=== PATIENT | male | born 1990 | race Caucasian/White ===

== ENCOUNTER 2018-09-13 13:25 | Emergency (ER) | payer OTHER ==
--- NOTE | 2018-09-13 13:51 | EDM.PDOC ---
ED HPI GENERAL MEDICAL PROBLEM - General Chief Complaint: Back Pain or Injury Stated Complaint: BACK PAIN Time Seen by Provider: 09/13/18 13:45 Source of Information: Reports: Patient History Limitations: Reports: No Limitations - History of Present Illness INITIAL COMMENTS - FREE TEXT/NARRATIVE: HISTORY AND PHYSICAL: History of present illness: Patient is a 28-year-old male here with complaint of low back pain. He states he fell on the ice about 6 weeks ago, back has been bothering him since. He reports this morning he woke up with worsening pain. He has had pain down the back of the thigh on the right and occasionally the left. Denies any saddle anesthesia, loss of bowel or bladder control, lower extremity weakness or foot drop, fevers or chills. He went to the chiropractor this morning but chiropractor told him he wouldn't touch him until he had it looked at and advised him to come to the ED. He has not taken anything for his pain today, will take ibuprofen and states this barely takes the edge off. Review of systems: As per history of present illness and below otherwise all systems reviewed and negative. Past medical history: As per history of present illness and as reviewed below otherwise noncontributory. Surgical history: As per history of present illness and as reviewed below otherwise noncontributory. Social history: No reported history of drug or alcohol abuse. Family history: As per history of present illness and as reviewed below otherwise noncontributory. Physical exam: General: Patient sitting comfortably in no acute distress and nontoxic appearing HEENT: Atraumatic, normocephalic, pupils reactive, negative for conjunctival pallor or scleral icterus, mucous membranes moist, throat clear, neck supple, nontender, trachea midline. No meningeal signs. Lungs: Clear to auscultation, breath sounds equal bilaterally, chest nontender. Heart: S1S2, regular, negative for clicks, rubs, or overt murmur. Abdomen: Soft, nondistended, nontender. Negative for masses or hepatosplenomegaly. Negative for costovertebral tenderness. Pelvis: Stable nontender. Genitourinary: Deferred. Rectal: Deferred. Spine: Pain to palpation of the lower lumber spine without any strep offs. Left lumbar paraspinal tenderness to palpation. Extremities: Atraumatic, negative for cords or calf pain. Neurovascular unremarkable. Neuro: Awake, alert, oriented. Cranial nerves II through XII unremarkable. Cerebellum unremarkable. Motor and sensory unremarkable throughout. Exam nonfocal. Notes: Diagnostics: x-ray lumbar spine Therapeutics: 60mg Toradol IM Prescriptions: Sublette 5/325 (#12) Impression: Lumbar back pain Plan: 1. Heat and Motrin as instructed. You may take tramadol as needed for severe pain, do not take while driving as it may make you drowsy 2. Follow up with primary care provider 3. Return to ED as needed as discussed Definitive disposition and diagnosis as appropriate pending reevaluation and review of above. lower back Pain Score (Numeric/FACES): 7 - Related Data Allergies Allergy/AdvReac Type Severity Reaction Status Date / Time codeine Allergy Hyperactivi Verified 09/13/18 13:41 ty Home Meds: Home Meds . [No Known Home Meds] 09/13/18 [History] Social & Family History - Family History Family Medical History: Noncontributory - Tobacco Use Smoking Status *Q: Never Smoker Second Hand Smoke Exposure: No - Caffeine Use Caffeine Use: Reports: Coffee, Energy Drinks, Soda, Tea - Recreational Drug Use Recreational Drug Use: No ED ROS GENERAL - Review of Systems Review Of Systems: ROS reveals no pertinent complaints other than HPI. ED EXAM,LOWER BACK PAIN/INJURY - Physical Exam Exam: See Below (see dictation) Course - Vital Signs Last Recorded V/S: Last Vital Signs Temp 97.5 F 09/13/18 13:42 Pulse 73 09/13/18 13:42 Resp 18 09/13/18 13:42 BP 141/75 H 09/13/18 13:42 Pulse Ox 97 09/13/18 13:42 - Orders/Labs/Meds Meds: Medications Discontinued Medications Generic Name Dose Route Start Last Admin Trade Name Freq PRN Reason Stop Dose Admin Ketorolac Tromethamine 60 mg 09/13/18 13:52 09/13/18 14:03 Toradol IM 09/13/18 13:53 60 mg ONETIME ONE Administration Departure - Departure Time of Disposition: 14:47 Disposition: Home, Self-Care 01 Condition: Good Clinical Impression: Lumbar back pain - Discharge Information Referrals: PCP,None [Primary Care Provider] - Forms: ED Department Discharge Additional Instructions: The following information is given to patients seen in the emergency department who are being discharged to home. This information is to outline your options for follow-up care. We provide all patients seen in our emergency department with a follow-up referral. The need for follow-up, as well as the timing and circumstances, are variable depending upon the specifics of your emergency department visit. If you don't have a primary care physician on staff, we will provide you with a referral. We always advise you to contact your personal physician following an emergency department visit to inform them of the circumstance of the visit and for follow-up with them and/or the need for any referrals to a consulting specialist. The emergency department will also refer you to a specialist when appropriate. This referral assures that you have the opportunity for follow-up care with a specialist. All of these measure are taken in an effort to provide you with optimal care, which includes your follow-up. Under all circumstances we always encourage you to contact your private physician who remains a resource for coordinating your care. When calling for follow-up care, please make the office aware that this follow-up is from your recent emergency room visit. If for any reason you are refused follow-up, please contact the [facility] Emergency Department at and asked to speak to the emergency department charge nurse. [facility] [address] [place] [id number] [facility] [address] [place] [id number] 1. Heat and Motrin as instructed. You may take tramadol as needed for severe pain, do not take while driving as it may make you drowsy 2. Follow up with primary care provider 3. Return to ED as needed as discussed
[2018-09-13] MEDS ORDERED: Ketorolac 60 MG/2 ML SDV IM ONE (13:52)
--- NOTE | 2018-09-13 14:25 | CR ---
EXAMINATION: Lumbar spine HISTORY: Pain COMPARISON: None TECHNIQUE: AP and lateral views FINDINGS: Mild dextrocurvature of the thoracolumbar spine, otherwise the lumbar spinal alignment is normal. The vertebral body heights appear maintained. SI joints are symmetric. Bone mineralization is otherwise normal. No fracture or acute osseous abnormality. IMPRESSION: No acute osseous abnormality identified.
== END 2018-09-13 15:00 | disposition home or self-care (01) ==
LOC: MW.ED 13:25
DX: M54.5 Low back pain (principal); Z88.5 Allergy status to narcotic agent
CPT/HCPCS: 72100; 96372; 99283; J1885

== ENCOUNTER 2020-10-04 12:11 | Emergency (ER) | payer OTHER ==
--- NOTE | 2020-10-04 12:14 | EDM.PDOC ---
ED [facility] GENERAL MEDICAL PROBLEM - General Chief Complaint: Headache Stated Complaint: MIGARINE HEADACHE Time Seen by Provider: 10/04/20 12:13 Source of Information: Reports: Patient History Limitations: Reports: No Limitations - History of Present Illness INITIAL COMMENTS - FREE TEXT/NARRATIVE: 30-year-old male with no past medical history presents with headache. Headache started on Thursday, described as gradual onset progressive worsening frontal headache, radiates to the occiput, throbbing sensation, moderate in severity. Today his headache worsened. He denies fever, neck stiffness or neck pain, focal numbness or weakness, chest pain, abdominal pain, shortness of breath. He admits to photophobia, phonophobia, 2 episodes of nonbloody vomitus and chills. ROS: A 10-point review of systems, other than pertinent positives and negatives as stated per HPI, is otherwise negative Past medical history: No additional pertinent history Past Surgical history: No additional pertinent history Social history: No additional pertinent history Family history: No additional pertinent history PHYSICAL EXAM General: AOx4, GCS = 15, moderate distress HEENT: dry mucous membrane Neck: supple, no meningismus, no Kernig or Brudzinski Cardiac: S1S2 RRR Respiratory: CTAB, no crackles or rales, no wheezing Abdomen: Soft, nontender, no rebound or guarding, nondistended, no pulsatile mass. Back: nontender Musculoskeletal: NVI distally, no deformity Neuro: No focal deficits, CN 2 - 12 WNL. - Related Data Allergies Allergy/AdvReac Type Severity Reaction Status Date / Time codeine Allergy Hyperactivi Verified 10/04/20 12:57 ty Home Meds: Home Meds . [No Known Home Meds] 09/13/18 [History] Past Medical History HEENT History: Reports: None Cardiovascular History: Reports: None Respiratory History: Reports: None Gastrointestinal History: Reports: None Genitourinary History: Reports: None Musculoskeletal History: Reports: Neck Pain, Chronic Neurological History: Reports: None Psychiatric History: Reports: None Endocrine/Metabolic History: Reports: None Hematologic History: Reports: None Immunologic History: Reports: None Oncologic (Cancer) History: Reports: None Dermatologic History: Reports: None - Past Surgical History Head Surgeries/Procedures: Reports: None HEENT Surgical History: Reports: None Cardiovascular Surgical History: Reports: None Respiratory Surgical History: Reports: None GI Surgical History: Reports: None Male Surgical History: Reports: None Endocrine Surgical History: Reports: None Neurological Surgical History: Reports: None Musculoskeletal Surgical History: Reports: None Oncologic Surgical History: Reports: None Dermatological Surgical History: Reports: None Social & Family History - Family History Family Medical History: No Pertinent Family History - Caffeine Use Caffeine Use: Reports: Coffee, Energy Drinks, Soda, Tea ED ROS GENERAL - Review of Systems Review Of Systems: See Below (see dictation) - Physical Exam Exam: See Below (see dictation) Course - Vital Signs Last Recorded V/S: Last Vital Signs Temp 98 F 10/04/20 12:59 Pulse 58 L 10/04/20 12:59 Resp 16 10/04/20 12:59 BP 132/70 10/04/20 12:59 Pulse Ox 98 10/04/20 12:59 - Orders/Labs/Meds Meds: Medications Discontinued Medications Generic Name Dose Route Start Last Admin Trade Name Nia PRDiego Reason Stop Dose Admin Diphenhydramine HCl 50 mg 10/04/20 12:32 10/04/20 13:12 Benadryl IVPUSH 10/04/20 12:33 50 mg ONETIME ONE Administration Sodium Chloride 1,000 mls @ 999 mls/hr 10/04/20 12:32 10/04/20 13:13 Normal Saline IV 10/04/20 13:32 999 mls/hr .Bolus ONE Administration Ketorolac Tromethamine 30 mg 10/04/20 12:32 10/04/20 13:12 Toradol IVPUSH 10/04/20 12:33 30 mg ONETIME ONE Administration Metoclopramide HCl 10 mg 10/04/20 12:32 10/04/20 13:13 Reglan IVPUSH 10/04/20 12:33 10 mg ONETIME ONE Administration - Re-Assessments/Exams Free Text/Narrative Re-Assessment/Exam: 10/04/20 1433 After IV fluids, Toradol, Reglan, Benadryl in the ER, the patient improved and is currently stable for discharge. I performed a repeat exam and did not appreciate new abnormal findings. Patient exhibits normal vital signs and has a normal gait on road test. I advised the patient to return to the ER for reevaluation if symptoms worsened, including fever, worsening pain, or any other worrisome symptoms. I instructed the patient to follow up with their PCP within 2-3 days. MEDICAL DECISION MAKING: I reviewed the patients past medical records, lab and radiographic findings. I discussed the case with the patient. My differential diagnosis included: Patients headache is not described as the worst headache of her life, it is not sudden in onset, and not thunderclap in nature. There is no fever, neck pain or stiffness, or focal numbness or weakness. The headache is identical in quality to his previous headaches. Headache was improved with reglan, Benadryl and toradol. I do not feel the need to pursue imaging studies for their headache. Departure - Departure Time of Disposition: 14:33 Disposition: Home, Self-Care 01 Condition: Good Clinical Impression: Migraine - Discharge Information *PRESCRIPTION DRUG MONITORING PROGRAM REVIEWED*: Not Applicable *COPY OF PRESCRIPTION DRUG MONITORING REPORT IN PATIENT MADDY: Not Applicable Instructions: Migraine Headache, [id number] Referrals: Suzette Persaud MD [Physician] - 1 Week Forms: ED Department Discharge Additional Instructions: The need for follow-up, as well as the timing and circumstances, are variable depending upon the specifics of your emergency department visit. If you don't have a primary care physician on staff, we will provide you with a referral. We always advise you to contact your personal physician following an emergency department visit to inform them of the circumstance of the visit and for follow-up with them and/or the need for any referrals to a consulting specialist. The emergency department will also refer you to a specialist when appropriate. This referral assures that you have the opportunity for follow-up care with a specialist. All of these measure are taken in an effort to provide you with optimal care, which includes your follow-up. Under all circumstances we always encourage you to contact your private physician who remains a resource for coordinating your care. When calling for follow-up care, please make the office aware that this follow-up is from your recent emergency room visit. If for any reason you are refused follow-up, please contact the [facility] Emergency Depar tment at and asked to speak to the emergency department charge nurse. If you do not have a primary care doctor, please follow up with the clinics below within 3-5 days. [facility] - [facility] [address] [place] [id number] [facility] [address] [place] [id number] Sepsis Event Note (ED) - Focused Exam Vital Signs: Vital Signs Temp Pulse Resp BP Pulse Ox 10/04/20 12:59 98 F 58 L 16 132/70 98
[2020-10-04] MEDS ORDERED: Ketorolac 30 MG/ML SDV IVPUSH ONE (12:32)
[2020-10-04] MEDS ORDERED: Metoclopramide 10 MG/2 ML SDV IVPUSH ONE (12:32)
[2020-10-04] MEDS ORDERED: Sodium Chloride 0.9% 1,000 ML IV ONE (12:32)
[2020-10-04] MEDS ORDERED: diphenhydrAMINE 50 MG/ML SDV IVPUSH ONE (12:32)
== END 2020-10-04 14:42 | disposition home or self-care (01) ==
LOC: MW.ED 12:11
DX: G43.909 Migraine, unspecified, not intractable, without status migrainosus (principal); Z88.5 Allergy status to narcotic agent
CPT/HCPCS: 96374; 96375; 99283; J1200; J1885; J2765; J7030